=== PATIENT | female | born 1980 | race Caucasian/White ===

== ENCOUNTER 2016-08-29 19:05 | Emergency (ER) | payer OTHER ==
[2016-08-29 19:31] LABS: BASO # 0.1 10_X3_uL (0.0-0.1); BASO % 0.5 % (0.1-1.2); EOS # 0.4 10_X3_uL (0.0-0.4); EOS % 3.9 % (0.7-5.8); GRAN # 6.3 10_X3_uL (1.6-6.1); GRAN % 62.6 % (34.0-71.1); HEMATOCRIT 45.7 % (34-45); HEMOGLOBIN 16.3 g/dL (11.2-15.7); LYMPH # 2.6 10_X3_uL (1.2-3.7); LYMPH % 25.7 % (19.3-51.7); MEAN CORPUSCULAR HEMOGLOBIN 31.2 pg (27.0-33.0); MEAN CORPUSCULAR HGB CONC 35.7 g/dL (32.0-36.0); MEAN CORPUSCULAR VOLUME 87.4 fL (79-95); MEAN PLATELET VOLUME 10.8 fl (7.5-11.5); MONO # 0.7 10_X3_uL (0.2-0.9); MONO % 7.3 % (4.7-12.5); PLATELET COUNT 246 x10_3/uL (182-369); RED BLOOD COUNT 5.23 x10_6/uL (3.9-5.2); RED CELL DISTRIBUTION WIDTH 14.2 % (11.7-14.4)
[2016-08-29 19:49] LABS: ALBUMIN 3.9 gm/dL (3.4-5.0); ALKALINE PHOSPHATASE 67 U/L (50-136); ALT/SGPT 14 U/L (3.5-33.9); AST/SGOT 11 U/L (7.04-26.96); BILIRUBIN,TOTAL 0.36 mg/dL (0.0-1.0); BLOOD UREA NITROGEN 11 mg/dL (7-18); CALCIUM 8.8 mg/dL (8.7-10.7); CARBON DIOXIDE 21 mmol/L (21-32); CREATININE 0.5 mg/dL (0.6-1.3); GLUCOSE,RANDOM 187 mg/dL (70-99); POTASSIUM 3.9 mmol/L (3.5-5.1); SODIUM 137 mmol/L (136-145)
[2016-08-29 20:06] LABS: URINE BILIRUBIN NEGATIVE (NEGATIVE); URINE BLOOD NEGATIVE (NEGATIVE); URINE GLUCOSE (UA) NORMAL (NORMAL); URINE KETONE NEGATIVE (NEGATIVE); URINE LEUKOCYTE ESTERASE TRACE (NEGATIVE); URINE NITRATE NEGATIVE (NEGATIVE); URINE PROTEIN NEGATIVE (NEGATIVE); UROBILINOGEN NORMAL mg/dL (<1.0)
[2016-08-29 20:15] LABS: URINE SQUAMOUS EPITHELIAL CELL 0-10 /[HPF] (NONE SEEN); URINE WBC 0-5 /[HPF] (0-5)
== END 2016-08-29 20:28 | disposition home or self-care (01) ==
LOC: ER 19:05
PROVIDERS: General Practice
DX: R55 Syncope and collapse (principal); E11.65 Type 2 diabetes mellitus with hyperglycemia; E66.01 Morbid (severe) obesity due to excess calories; F17.210 Nicotine dependence, cigarettes, uncomplicated; Z79.84 Long term (current) use of oral hypoglycemic drugs; Z88.0 Allergy status to penicillin
CPT/HCPCS: 36415; 80053; 81001; 85025; 93005; 99070; 99284-25; J7040